=== PATIENT | female | born 1930 | race African-American/Black ===

== ENCOUNTER 2016-07-20 17:29 | Emergency (ER) | payer MEDICARE, MEDICAID ==
[~2016-07-20] VITALS: Ht 167.6 cm; Wt 80.0 kg
[~2016-07-20 17:29] MED LIST: AMLO10TA4 GT; ASPI-1035 PO; CETI-101 GT; FAMO40TA35 GT; LISI-604 GT; LISI-651 PO; LOPE2TAB26 GT; LOV40 SQ; XALAO EACHEYE
[2016-07-20] MEDS ORDERED: DIATR MEGLU/DIATRIZOATE SOLN 30ML PO ONE (18:30)
[2016-07-20 20:00] VITALS: BP 151/76
== END 2016-07-20 22:35 | disposition home or self-care (01) ==
LOC: ER 17:31
DX: K94.23 Gastrostomy malfunction (principal); I11.0 Hypertensive heart disease with heart failure; I50.9 Heart failure, unspecified; J44.9 Chronic obstructive pulmonary disease, unspecified; F03.90 Unspecified dementia, unspecified severity, without behavioral disturbance, psychotic disturbance, mood disturbance, and anxiety; E11.9 Type 2 diabetes mellitus without complications; E78.00 Pure hypercholesterolemia, unspecified; Z79.82 Long term (current) use of aspirin; Z79.899 Other long term (current) drug therapy; Z86.73 Personal history of transient ischemic attack (TIA), and cerebral infarction without residual deficits; Z87.01 Personal history of pneumonia (recurrent)
CPT/HCPCS: 43760; 74000; 99284; Q9963

== ENCOUNTER 2016-09-11 01:02 | Emergency (ER) | payer MEDICARE, MEDICAID ==
[~2016-09-11] VITALS: Ht 165.1 cm; Wt 86.0 kg
[2016-09-11 05:07] VITALS: BP 185/84
== END 2016-09-11 06:26 ==
LOC: ER 01:08
DX: Z43.1 Encounter for attention to gastrostomy (principal); J44.9 Chronic obstructive pulmonary disease, unspecified; I10 Essential (primary) hypertension; E11.9 Type 2 diabetes mellitus without complications; R47.01 Aphasia; Z86.73 Personal history of transient ischemic attack (TIA), and cerebral infarction without residual deficits; Z79.82 Long term (current) use of aspirin; Z79.899 Other long term (current) drug therapy
CPT/HCPCS: 51702; 74000; 99284

== ENCOUNTER 2017-07-19 17:02 | Emergency (ER) | payer MEDICARE, MEDICAID ==
[~2017-07-19] VITALS: Ht 165.1 cm; Wt 88.0 kg
[~2017-07-19 17:02] MED LIST changes: -ASPI-1035 PO; +ASPI-1159 PO; -FAMO40TA35 GT; +FAMO40TA70 GT
[2017-07-19] MEDS ORDERED: DIATR MEGLU/DIATRIZOATE SOLN 30ML ONE (20:54)
[2017-07-19 22:03] VITALS: BP 161/83
== END 2017-07-19 22:09 | disposition home or self-care (01) ==
LOC: ER 17:09
DX: Z43.1 Encounter for attention to gastrostomy (principal); J44.9 Chronic obstructive pulmonary disease, unspecified; I10 Essential (primary) hypertension; E11.9 Type 2 diabetes mellitus without complications; F03.90 Unspecified dementia, unspecified severity, without behavioral disturbance, psychotic disturbance, mood disturbance, and anxiety; Z79.82 Long term (current) use of aspirin; Z86.73 Personal history of transient ischemic attack (TIA), and cerebral infarction without residual deficits
CPT/HCPCS: 43760; 74018; 99284; Q9963; A4315

== ENCOUNTER 2017-11-12 11:51 | Emergency (ER) | payer MEDICARE, MEDICAID ==
[~2017-11-12] VITALS: Ht 162.6 cm; Wt 80.0 kg
[2017-11-12] MEDS ORDERED: DIATR MEGLU/DIATRIZOATE SOLN 30ML ONE (15:40)
[2017-11-12 16:50] VITALS: BP 158/83
== END 2017-11-12 16:59 | disposition home or self-care (01) ==
LOC: ER 11:51
DX: Z43.1 Encounter for attention to gastrostomy (principal); I10 Essential (primary) hypertension; F03.90 Unspecified dementia, unspecified severity, without behavioral disturbance, psychotic disturbance, mood disturbance, and anxiety; E11.9 Type 2 diabetes mellitus without complications; Z86.73 Personal history of transient ischemic attack (TIA), and cerebral infarction without residual deficits
CPT/HCPCS: 43760; 74018; 99284; Q9963

== ENCOUNTER 2018-03-16 20:51 | Emergency (ER) | payer MEDICARE, MEDICAID ==
[~2018-03-16] VITALS: Ht 162.6 cm; Wt 89.0 kg
[2018-03-17] MEDS ORDERED: CLONIDINE 0.2MG TABLET PO ONE (00:15)
[2018-03-17 01:54] VITALS: BP 107/62
== END 2018-03-17 01:57 ==
LOC: ER 20:51
DX: R04.0 Epistaxis (principal); D64.9 Anemia, unspecified; I11.0 Hypertensive heart disease with heart failure; I50.9 Heart failure, unspecified; E11.9 Type 2 diabetes mellitus without complications; F03.90 Unspecified dementia, unspecified severity, without behavioral disturbance, psychotic disturbance, mood disturbance, and anxiety; J44.9 Chronic obstructive pulmonary disease, unspecified; H57.89 Other specified disorders of eye and adnexa; Z86.73 Personal history of transient ischemic attack (TIA), and cerebral infarction without residual deficits; Z87.09 Personal history of other diseases of the respiratory system; Z93.1 Gastrostomy status; Z79.82 Long term (current) use of aspirin; Z79.899 Other long term (current) drug therapy; R60.9 Edema, unspecified
CPT/HCPCS: 99283

== ENCOUNTER 2018-03-21 19:40 | Emergency (ER) | payer MEDICARE, MEDICAID ==
[~2018-03-21] VITALS: Ht 165.1 cm; Wt 90.0 kg
[2018-03-21] MEDS ORDERED: DIATR MEGLU/DIATRIZOATE SOLN 30ML ONE (21:16)
[2018-03-21] MEDS ORDERED: CLONIDINE 0.1MG TABLET PO ONE (23:45)
[2018-03-22 01:19] VITALS: BP 150/79
== END 2018-03-22 01:20 | disposition home or self-care (01) ==
LOC: ER 19:40
DX: K94.29 Other complications of gastrostomy (principal); K21.9 Gastro-esophageal reflux disease without esophagitis; I11.9 Hypertensive heart disease without heart failure; I50.9 Heart failure, unspecified; E11.9 Type 2 diabetes mellitus without complications; J44.9 Chronic obstructive pulmonary disease, unspecified; Z86.73 Personal history of transient ischemic attack (TIA), and cerebral infarction without residual deficits
CPT/HCPCS: 43760; 74018; 99284; Q9963

== ENCOUNTER 2018-04-12 23:50 | Emergency (ER) | payer MEDICARE, MEDICAID ==
[~2018-04-12] VITALS: Ht 162.6 cm; Wt 82.0 kg
[~2018-04-12 23:50] MED LIST changes: +AMLO10TA80 MT; +CLON-457 MT; +DOCU-150 MT; +FAMO-135 MT; +INSU100C6 SQ; +LEVVL SQ; +LISI-652 MT
[2018-04-13] MEDS ORDERED: DIATR MEGLU/DIATRIZOATE SOLN 30ML ONE (04:42)
[2018-04-13 09:15] VITALS: BP 161/71
== END 2018-04-13 09:19 ==
LOC: ER 23:50
DX: K94.23 Gastrostomy malfunction (principal); I12.9 Hypertensive chronic kidney disease with stage 1 through stage 4 chronic kidney disease, or unspecified chronic kidney disease; I25.10 Atherosclerotic heart disease of native coronary artery without angina pectoris; J44.9 Chronic obstructive pulmonary disease, unspecified; F03.90 Unspecified dementia, unspecified severity, without behavioral disturbance, psychotic disturbance, mood disturbance, and anxiety; G40.909 Epilepsy, unspecified, not intractable, without status epilepticus; E11.22 Type 2 diabetes mellitus with diabetic chronic kidney disease; N18.9 Chronic kidney disease, unspecified; I69.351 Hemiplegia and hemiparesis following cerebral infarction affecting right dominant side; Z79.4 Long term (current) use of insulin; Z79.82 Long term (current) use of aspirin; Y83.3 Surgical operation with formation of external stoma as the cause of abnormal reaction of the patient, or of later complication, without mention of misadventure at the time of the procedure; Y92.89 Other specified places as the place of occurrence of the external cause
CPT/HCPCS: 74018; 99285; Q9963

== ENCOUNTER 2018-04-18 09:32 | Emergency (ER) | payer MEDICARE, MEDICAID ==
[~2018-04-18] VITALS: Ht 162.6 cm; Wt 88.5 kg
[2018-04-18] MEDS ORDERED: DIATR MEGLU/DIATRIZOATE SOLN 30ML ONE (11:17)
[2018-04-18] MEDS ORDERED: CLONIDINE 0.1MG TABLET GT ONE (12:00)
[2018-04-18] MEDS ORDERED: AMLODIPINE 10MG TABLET PO ONE (14:45)
[2018-04-18] MEDS ORDERED: HYDRALAZINE HCL 25MG TABLET GT ONE (14:45)
[2018-04-18] MEDS ORDERED: LISINOPRIL 20MG TABLET PO SCH (14:45)
[2018-04-18] MEDS ORDERED: CLONIDINE 0.2MG TABLET PO ONE (17:15)
[2018-04-18 20:30] VITALS: BP 141/66
== END 2018-04-18 20:49 ==
LOC: ER 09:40
DX: K94.29 Other complications of gastrostomy (principal); J44.9 Chronic obstructive pulmonary disease, unspecified; I11.0 Hypertensive heart disease with heart failure; I50.9 Heart failure, unspecified; F03.90 Unspecified dementia, unspecified severity, without behavioral disturbance, psychotic disturbance, mood disturbance, and anxiety; E11.9 Type 2 diabetes mellitus without complications; Z86.73 Personal history of transient ischemic attack (TIA), and cerebral infarction without residual deficits; Z79.4 Long term (current) use of insulin; Y83.3 Surgical operation with formation of external stoma as the cause of abnormal reaction of the patient, or of later complication, without mention of misadventure at the time of the procedure; Y92.128 Other place in nursing home as the place of occurrence of the external cause
CPT/HCPCS: 43760; 74018; 99285; Q9963

== ENCOUNTER 2018-05-13 18:19 | Inpatient (IN) | payer MEDICARE, MEDICAID ==
[~2018-05-13] VITALS: Ht 160 cm; Wt 93.9 kg
[2018-05-13] MEDS ORDERED: SODIUM CHLORIDE 0.9% 1000ML BAG (SEPSIS BOLUS) IV ONE (19:00)
[2018-05-13 20:50] LABS: BASOPHILS % 0.5 % (0.0-2.0); EOSINOPHILS % 1.7 % (0.0-5.0); HEMATOCRIT. 26.9 % (36.0-48.0); HEMOGLOBIN. 8.1 g/dL (12.0-16.0); LYMPHOCYTES % 8.6 % (20.0-50.0); MEAN CORPUSCULAR HEMOGLOBIN 26.7 pg (28.0-32.0); MEAN CORPUSCULAR VOLUME 88.6 fL (81.0-99.0); MEAN PLATELET VOLUME 10.3 fl (7.4-10.4); MONOCYTES % 7.8 % (2.0-8.0); NEUTROPHILS % 81.4 % (40.0-76.0); PLATELET 320 x1000/uL (130-400); RED BLOOD CELL COUNT 3.04 mill/uL (4.2-5.4)
[2018-05-13 20:55] LABS: CHLORIDE 114 mEq/L (98-107)
[2018-05-13 20:57] LABS: PROTHROMBIN TIME 10.3 sec (9.1-11.1)
[2018-05-13 22:34] LABS: CLARITY URINE TURBID (CLEAR); COLOR URINE YELLOW (YELLOW); KETONES URINE NEGATIVE (NEGATIVE); LEUKOCYTE ESTERASE URINE 3+ (NEGATIVE); NITRITE URINE NEGATIVE (NEGATIVE); OCCULT BLOOD URINE NEGATIVE (NEGATIVE); PH URINE 8.5 (4.5-8.0); PROTEIN URINE 3+ (NEGATIVE); SPECIFIC GRAVITY URINE 1.015 (1.005-1.030); UROBILINOGEN URINE 0.2 E.U./dL (0.2-1.0)
[2018-05-14] VITALS (7 sets, daily range): BP systolic 147–172; BP diastolic 59–74
[2018-05-14] MEDS ORDERED: DEXT 5%/0.9% NACL 1,000 ML IV SCH (02:15)
[2018-05-14] MEDS ORDERED: GUAI600T88 GT (02:45)
[2018-05-14] MEDS: CEFTRIAXONE 1 G PREMIX 50 ML IV SCH (05:09)
[2018-05-14 06:53] LABS: BASOPHILS % 0.5 % (0.0-2.0); EOSINOPHILS % 2.3 % (0.0-5.0); HEMATOCRIT. 24.3 % (36.0-48.0); HEMOGLOBIN. 7.5 g/dL (12.0-16.0); LYMPHOCYTES % 8.7 % (20.0-50.0); MEAN CORPUSCULAR HEMOGLOBIN 27.7 pg (28.0-32.0); MEAN CORPUSCULAR VOLUME 89.7 fL (81.0-99.0); MEAN PLATELET VOLUME 10.1 fl (7.4-10.4); MONOCYTES % 7.3 % (2.0-8.0); NEUTROPHILS % 81.2 % (40.0-76.0); PLATELET 276 x1000/uL (130-400); RED BLOOD CELL COUNT 2.71 mill/uL (4.2-5.4); RED CELL DISTRIBUTION WIDTH 15.8 % (11.6-14.6)
[2018-05-14] MEDS ORDERED: DEXTROSE 50% WATER 50ML SYRINGE IV PRN (09:00)
[2018-05-14] MEDS ORDERED: ENOXAPARIN 40MG/0.4ML SYR SUBCUT SCH (09:00)
[2018-05-14] MEDS ORDERED: LEVOFLOXACIN 500MG PREMIX 100 ML IV SCH ×2 (09:15→11:00)
[2018-05-14] MEDS: DOCUSATE SODIUM 100MG CAPSULE PO SCH (10:23)
[2018-05-14] MEDS: AMLODIPINE 10MG TABLET GT SCH (10:23)
[2018-05-14] MEDS: ASPIRIN 81MG EC TABLET PO SCH (10:23)
[2018-05-14] MEDS: ENOXAPARIN 30MG/0.3ML SYR SUBCUT SCH (10:24)
[2018-05-14] MEDS: DEXTROSE 5% WATER 1,000 ML IV SCH ×2 (10:24→23:20)
[2018-05-14] MEDS: BLOOD SUGAR DIAGNOSTIC STRIP TEST SCH ×3 (12:14→20:41)
[2018-05-14] MEDS: INSULIN LISPRO 100 UNITS/ML SUBCUT SCH ×3 (12:17→20:59)
[2018-05-14] MEDS: LACTULOSE 20G/30ML UDC PO SCH ×2 (14:34→21:00)
[2018-05-14] MEDS: VANCOMYCIN HCL 1000 MG/20 ML ORAL PO SCH (18:23)
[2018-05-14] MEDS: LATANOPROST 0.005% OPHTH DROPS 2.5ML EACHEYE SCH (20:58)
[2018-05-15] VITALS: BP 165/65
[2018-05-15] MEDS: VANCOMYCIN HCL 1000 MG/20 ML ORAL PO SCH ×4 (00:54→19:04)
[2018-05-15 04:00] VITALS: BP 152/64
[2018-05-15] MEDS: CEFTRIAXONE 1 G PREMIX 50 ML IV SCH (04:09)
[2018-05-15] MEDS: BLOOD SUGAR DIAGNOSTIC STRIP TEST SCH ×4 (05:57→21:00)
[2018-05-15] MEDS: LACTULOSE 20G/30ML UDC PO SCH ×3 (06:06→22:21)
[2018-05-15] MEDS: INSULIN LISPRO 100 UNITS/ML SUBCUT SCH ×4 (06:27→23:09)
[2018-05-15] MEDS: ASPIRIN 81MG EC TABLET PO SCH (08:19)
[2018-05-15] MEDS: ENOXAPARIN 30MG/0.3ML SYR SUBCUT SCH (08:20)
[2018-05-15] MEDS: AMLODIPINE 10MG TABLET GT SCH (08:20)
[2018-05-15] MEDS: DOCUSATE SODIUM 100MG CAPSULE PO SCH (08:27)
[2018-05-15] MEDS: LEVOFLOXACIN 250MG PREMIX 50 ML IV SCH (11:23)
[2018-05-15 12:00] VITALS: BP 155/62
[2018-05-15] MEDS ORDERED: INSULIN GLARGINE UD 100 UNITS/ML SYR SUBCUT SCH (14:30)
[2018-05-15] MEDS: CLONIDINE 0.1MG TABLET GT SCH ×2 (15:36→22:22)
[2018-05-15] MEDS: DEXTROSE 5% WATER 1,000 ML IV SCH (15:36)
[2018-05-15 15:46] LABS: TOTAL IRON BINDING CAPACITY 159 ug/dL (250-450)
[2018-05-15 16:00] VITALS: BP 157/55
[2018-05-15 20:00] VITALS: BP 149/60
[2018-05-15] MEDS: LATANOPROST 0.005% OPHTH DROPS 2.5ML EACHEYE SCH (22:24)
[2018-05-16] VITALS: BP 180/72
[2018-05-16] MEDS: VANCOMYCIN HCL 1000 MG/20 ML ORAL PO SCH ×4 (01:43→18:30)
[2018-05-16] MEDS: DEXTROSE 5% WATER 1,000 ML IV SCH ×2 (01:49→15:20)
[2018-05-16 04:00] VITALS: BP 163/68
[2018-05-16] MEDS: CEFTRIAXONE 1 G PREMIX 50 ML IV SCH (04:19)
[2018-05-16] MEDS: CLONIDINE 0.1MG TABLET GT SCH ×2 (06:48→13:07)
[2018-05-16] MEDS: LACTULOSE 20G/30ML UDC PO SCH (06:48)
[2018-05-16] MEDS: BLOOD SUGAR DIAGNOSTIC STRIP TEST SCH ×4 (06:49→21:00)
[2018-05-16 06:58] LABS: HEMATOCRIT. 21.5 % (36.0-48.0); MEAN CORPUSCULAR HEMOGLOBIN 27.5 pg (28.0-32.0); MEAN CORPUSCULAR VOLUME 90.1 fL (81.0-99.0); MEAN PLATELET VOLUME 9.7 fl (7.4-10.4); PLATELET 269 x1000/uL (130-400); RED BLOOD CELL COUNT 2.39 mill/uL (4.2-5.4); RED CELL DISTRIBUTION WIDTH 15.6 % (11.6-14.6)
[2018-05-16] MEDS: INSULIN LISPRO 100 UNITS/ML SUBCUT SCH ×4 (07:08→21:00)
[2018-05-16 07:41] LABS: PHOSPHORUS 2.9 mg/dL (2.5-4.9)
[2018-05-16 08:00] VITALS: BP 133/59
[2018-05-16 08:02] LABS: HEMOGLOBIN. 6.6 g/dL (12.0-16.0)
[2018-05-16] MEDS: AMLODIPINE 10MG TABLET GT SCH ×2 (09:00→09:03)
[2018-05-16] MEDS: DOCUSATE SODIUM 100MG CAPSULE PO SCH (09:00)
[2018-05-16] MEDS: ASPIRIN 81MG EC TABLET PO SCH ×2 (09:00→09:03)
[2018-05-16] MEDS: ENOXAPARIN 30MG/0.3ML SYR SUBCUT SCH (09:00)
[2018-05-16 11:22] LABS: PLATELET ESTIMATE NORMAL
[2018-05-16] MEDS: LEVOFLOXACIN 250MG PREMIX 50 ML IV SCH (11:52)
[2018-05-16] MEDS: INSULIN GLARGINE UD 100 UNITS/ML SYR SUBCUT SCH (11:55)
[2018-05-16 12:24] VITALS: BP 157/62
[2018-05-16] MEDS: NYSTATIN 100,000 UNITS/ML 5ML UDC SSW SCH ×2 (13:06→18:30)
[2018-05-16 16:00] VITALS: BP 132/57
[2018-05-16 20:10] VITALS: BP 94/61
[2018-05-16] MEDS: LATANOPROST 0.005% OPHTH DROPS 2.5ML EACHEYE SCH (23:58)
[2018-05-17] VITALS (7 sets, daily range): BP systolic 134–191; BP diastolic 54–84
[2018-05-17] MEDS: VANCOMYCIN HCL 1000 MG/20 ML ORAL PO SCH
[2018-05-17] MEDS: NYSTATIN 100,000 UNITS/ML 5ML UDC SSW SCH
[2018-05-17 01:16] LABS: HEMATOCRIT 27.6 % (36.0-48.0); HEMOGLOBIN 8.3 g/dL (12.0-16.0)
[2018-05-17] MEDS: BLOOD SUGAR DIAGNOSTIC STRIP TEST SCH ×4 (06:30→21:29)
[2018-05-17] MEDS: INSULIN LISPRO 100 UNITS/ML SUBCUT SCH ×4 (06:30→21:29)
[2018-05-17] MEDS ORDERED: LIDOCAINE HCL 1% 20ML VIAL (Pyxis) INJ ONE ×2 (07:50→08:35)
[2018-05-17] MEDS ORDERED: VANJ5 PO (08:20)
[2018-05-17] MEDS ORDERED: LANTUSUD SUBCUT ×2 (08:20→08:22)
[2018-05-17] MEDS ORDERED: LACT10SO7 PO (08:20)
[2018-05-17] MEDS: DOCUSATE SODIUM 100MG CAPSULE PO SCH (09:00)
[2018-05-17] MEDS ORDERED: LACTULOSE 20G/30ML UDC PO SCH (09:00)
[2018-05-17] MEDS: ASPIRIN 81MG EC TABLET PO SCH (09:00)
[2018-05-17] MEDS: INSULIN GLARGINE UD 100 UNITS/ML SYR SUBCUT SCH (10:00)
[2018-05-17 11:23] LABS: BASOPHILS % 0.4 % (0.0-2.0); HEMATOCRIT. 24.9 % (36.0-48.0); HEMOGLOBIN. 7.8 g/dL (12.0-16.0); LYMPHOCYTES % 7.3 % (20.0-50.0); MEAN CORPUSCULAR HEMOGLOBIN 27.5 pg (28.0-32.0); MEAN CORPUSCULAR VOLUME 87.7 fL (81.0-99.0); MEAN PLATELET VOLUME 10.3 fl (7.4-10.4); MONOCYTES % 4.6 % (2.0-8.0); NEUTROPHILS % 84.7 % (40.0-76.0); PLATELET 285 x1000/uL (130-400); RED BLOOD CELL COUNT 2.84 mill/uL (4.2-5.4); RED CELL DISTRIBUTION WIDTH 15.5 % (11.6-14.6)
[2018-05-17 11:37] LABS: CHLORIDE 117 mEq/L (98-107)
[2018-05-17] MEDS: ENOXAPARIN 30MG/0.3ML SYR SUBCUT SCH (12:34)
[2018-05-17] MEDS: HYDRALAZINE 20MG/ML VIAL IV PRN (13:06)
[2018-05-17] MEDS ORDERED: SODIUM CHLORIDE 0.9% 10ML VIAL ONE (16:00)
[2018-05-17] MEDS ORDERED: HYDRALAZINE 20MG/ML VIAL IV NR (16:45)
[2018-05-17] MEDS ORDERED: SODIUM CHLORIDE 0.45% 1,000 ML IV SCH (16:45)
[2018-05-17] MEDS: CLONIDINE 0.1MG TABLET GT SCH (17:00)
[2018-05-17] MEDS: AMLODIPINE 5MG TABLET GT SCH (17:00)
[2018-05-17] MEDS ORDERED: MIDAZOLAM HCL 5 MG/5 ML VIAL IV PRN (18:24)
[2018-05-17] MEDS ORDERED: MIDAZOLAM HCL 5 MG/5 ML VIAL ONE (18:25)
[2018-05-17] MEDS ORDERED: FENTANYL CITRATE/PF 50MCG/ML 2ML VIAL ONE (18:26)
[2018-05-17] MEDS: LATANOPROST 0.005% OPHTH DROPS 2.5ML EACHEYE SCH (21:28)
[2018-05-17] MEDS: PANTOPRAZOLE SODIUM 40 MG/VIAL IV SCH (21:28)
[2018-05-18] VITALS: BP 176/66
[2018-05-18 02:02] LABS: HEMATOCRIT 22.8 % (36.0-48.0); HEMOGLOBIN 7.4 g/dL (12.0-16.0)
[2018-05-18 04:00] VITALS: BP_SYST 128; BP_DIAS 105; BP_DIAS 85
[2018-05-18] MEDS: CEFTRIAXONE 1 G PREMIX 50 ML IV SCH (04:08)
[2018-05-18] MEDS: VANCOMYCIN HCL 1000 MG/20 ML ORAL PO SCH ×4 (05:54→23:26)
[2018-05-18] MEDS: NYSTATIN 100,000 UNITS/ML 5ML UDC SSW SCH ×4 (05:54→23:27)
[2018-05-18] MEDS: DEXTROSE 5% WATER 1,000 ML IV SCH ×3 (06:02→23:27)
[2018-05-18] MEDS: BLOOD SUGAR DIAGNOSTIC STRIP TEST SCH ×4 (06:18→21:00)
[2018-05-18] MEDS: INSULIN LISPRO 100 UNITS/ML SUBCUT SCH ×5 (06:18→22:02)
[2018-05-18 06:43] LABS: BASOPHILS % 0.2 % (0.0-2.0); EOSINOPHILS % 1.3 % (0.0-5.0); HEMATOCRIT. 27.5 % (36.0-48.0); HEMOGLOBIN. 8.6 g/dL (12.0-16.0); LYMPHOCYTES % 9.2 % (20.0-50.0); MEAN CORPUSCULAR HEMOGLOBIN 27.5 pg (28.0-32.0); MEAN CORPUSCULAR VOLUME 87.7 fL (81.0-99.0); MONOCYTES % 7.1 % (2.0-8.0); NEUTROPHILS % 82.2 % (40.0-76.0); PLATELET 304 x1000/uL (130-400); RED BLOOD CELL COUNT 3.14 mill/uL (4.2-5.4); RED CELL DISTRIBUTION WIDTH 15.5 % (11.6-14.6)
[2018-05-18 06:54] LABS: PHOSPHORUS 2.9 mg/dL (2.5-4.9)
[2018-05-18 08:00] VITALS: BP 172/71
[2018-05-18] MEDS: CLONIDINE 0.1MG TABLET GT SCH ×2 (11:03→18:07)
[2018-05-18] MEDS: PANTOPRAZOLE SODIUM 40 MG/VIAL IV SCH ×3 (11:03→18:06)
[2018-05-18] MEDS: ASPIRIN 81MG EC TABLET PO SCH (11:03)
[2018-05-18] MEDS: AMLODIPINE 5MG TABLET GT SCH ×2 (11:04→18:06)
[2018-05-18] MEDS: INSULIN GLARGINE UD 100 UNITS/ML SYR SUBCUT SCH (11:08)
[2018-05-18 12:00] VITALS: BP 154/60
[2018-05-18 16:00] VITALS: BP 148/57
[2018-05-18 20:00] VITALS: BP 124/52
[2018-05-18] MEDS: LATANOPROST 0.005% OPHTH DROPS 2.5ML EACHEYE SCH (22:01)
[2018-05-19] VITALS (17 sets, daily range): BP systolic 111–158; BP diastolic 45–79
[2018-05-19] MEDS: NYSTATIN 100,000 UNITS/ML 5ML UDC SSW SCH ×3 (06:00→17:18)
[2018-05-19] MEDS: BLOOD SUGAR DIAGNOSTIC STRIP TEST SCH ×4 (06:07→21:00)
[2018-05-19] MEDS: CEFTRIAXONE 1 G PREMIX 50 ML IV SCH (06:07)
[2018-05-19] MEDS: VANCOMYCIN HCL 1000 MG/20 ML ORAL PO SCH ×3 (06:07→17:18)
[2018-05-19] MEDS: INSULIN LISPRO 100 UNITS/ML SUBCUT SCH ×4 (06:11→21:00)
[2018-05-19 08:10] LABS: BASOPHILS % 0.3 % (0.0-2.0); EOSINOPHILS % 3.8 % (0.0-5.0); HEMATOCRIT. 21.3 % (36.0-48.0); LYMPHOCYTES % 10.6 % (20.0-50.0); MEAN CORPUSCULAR HEMOGLOBIN 27.3 pg (28.0-32.0); MEAN CORPUSCULAR VOLUME 87.8 fL (81.0-99.0); MEAN PLATELET VOLUME 9.5 fl (7.4-10.4); MONOCYTES % 7.6 % (2.0-8.0); NEUTROPHILS % 77.7 % (40.0-76.0); PLATELET 278 x1000/uL (130-400); RED BLOOD CELL COUNT 2.42 mill/uL (4.2-5.4); RED CELL DISTRIBUTION WIDTH 15.3 % (11.6-14.6)
[2018-05-19 08:17] LABS: HEMOGLOBIN. 6.6 g/dL (12.0-16.0)
[2018-05-19 08:41] LABS: PHOSPHORUS 3.2 mg/dL (2.5-4.9)
[2018-05-19] MEDS: PANTOPRAZOLE SODIUM 40 MG/VIAL IV SCH ×2 (09:32→17:18)
[2018-05-19] MEDS: DEXTROSE 5% WATER 1,000 ML IV SCH (09:32)
[2018-05-19] MEDS: ASPIRIN 81MG EC TABLET PO SCH (09:32)
[2018-05-19] MEDS: AMLODIPINE 5MG TABLET GT SCH ×2 (09:33→17:18)
[2018-05-19] MEDS: CLONIDINE 0.1MG TABLET GT SCH ×2 (09:33→17:18)
[2018-05-19] MEDS: INSULIN GLARGINE UD 100 UNITS/ML SYR SUBCUT SCH (09:34)
[2018-05-19] MEDS ORDERED: IRON SUCROSE COMPLEX 100 MG/5 ML ML IV SCH (13:15)
[2018-05-19] MEDS ORDERED: NON FORMULARY PATIENT HOME MED XX SCH (14:00)
[2018-05-19] MEDS: AMOXICILLIN 500 MG CAPSULE PO SCH ×2 (14:46→22:34)
[2018-05-19] MEDS: LATANOPROST 0.005% OPHTH DROPS 2.5ML EACHEYE SCH (22:04)
[2018-05-20] VITALS: BP 120/80
[2018-05-20] MEDS: VANCOMYCIN HCL 1000 MG/20 ML ORAL PO SCH ×5 (01:40→22:48)
[2018-05-20 04:00] VITALS: BP 170/65
[2018-05-20] MEDS: CEFTRIAXONE 1 G PREMIX 50 ML IV SCH (04:55)
[2018-05-20] MEDS: HYDRALAZINE 20MG/ML VIAL IV PRN (04:57)
[2018-05-20] MEDS: AMOXICILLIN 500 MG CAPSULE PO SCH ×3 (04:58→22:48)
[2018-05-20] MEDS: NYSTATIN 100,000 UNITS/ML 5ML UDC SSW SCH ×4 (05:03→13:04)
[2018-05-20] MEDS: INSULIN LISPRO 100 UNITS/ML SUBCUT SCH ×4 (06:39→21:21)
[2018-05-20] MEDS: BLOOD SUGAR DIAGNOSTIC STRIP TEST SCH ×4 (06:40→21:15)
[2018-05-20 07:30] LABS: BASOPHILS % 0.5 % (0.0-2.0); EOSINOPHILS % 4.3 % (0.0-5.0); HEMATOCRIT. 29.4 % (36.0-48.0); LYMPHOCYTES % 11.1 % (20.0-50.0); MEAN CORPUSCULAR HEMOGLOBIN 29.5 pg (28.0-32.0); MEAN CORPUSCULAR VOLUME 87.5 fL (81.0-99.0); MEAN PLATELET VOLUME 9.5 fl (7.4-10.4); MONOCYTES % 7.6 % (2.0-8.0); NEUTROPHILS % 76.5 % (40.0-76.0); PLATELET 294 x1000/uL (130-400); RED BLOOD CELL COUNT 3.36 mill/uL (4.2-5.4); RED CELL DISTRIBUTION WIDTH 14.9 % (11.6-14.6)
[2018-05-20 07:55] LABS: HEMOGLOBIN. 9.9 g/dL (12.0-16.0)
[2018-05-20 08:00] VITALS: BP 165/79
[2018-05-20 08:07] LABS: CHLORIDE 105 mEq/L (98-107)
[2018-05-20] MEDS ORDERED: POTASSIUM CHLORIDE 20MEQ TABLET SR PO NR (09:00)
[2018-05-20] MEDS: AMLODIPINE 5MG TABLET GT SCH ×2 (09:49→17:12)
[2018-05-20] MEDS: CLONIDINE 0.1MG TABLET GT SCH ×2 (09:49→17:12)
[2018-05-20] MEDS: PANTOPRAZOLE SODIUM 40 MG/VIAL IV SCH ×2 (09:50→17:13)
[2018-05-20] MEDS: ASPIRIN 81MG EC TABLET PO SCH (09:51)
[2018-05-20] MEDS: IRON SUCROSE COMPLEX 100 MG/5 ML ML IV SCH (09:51)
[2018-05-20] MEDS: INSULIN GLARGINE UD 100 UNITS/ML SYR SUBCUT SCH (09:55)
[2018-05-20] MEDS ORDERED: POTASSIUM PHOS,M-BASIC-D-BASIC 15 MMOL in DEXT 5% WATER 245 ML IV NR (10:00)
[2018-05-20 12:00] VITALS: BP 155/80
[2018-05-20 16:00] VITALS: BP 160/77
[2018-05-20 20:00] VITALS: BP 160/76
[2018-05-20] MEDS: LATANOPROST 0.005% OPHTH DROPS 2.5ML EACHEYE SCH (20:54)
[2018-05-21] VITALS: BP 165/80
[2018-05-21 04:00] VITALS: BP 188/81
[2018-05-21] MEDS: AMOXICILLIN 500 MG CAPSULE PO SCH ×3 (04:42→21:40)
[2018-05-21] MEDS: VANCOMYCIN HCL 1000 MG/20 ML ORAL PO SCH ×3 (04:42→17:53)
[2018-05-21] MEDS: CEFTRIAXONE 1 G PREMIX 50 ML IV SCH (04:42)
[2018-05-21] MEDS: HYDRALAZINE 20MG/ML VIAL IV PRN (04:54)
[2018-05-21] MEDS: BLOOD SUGAR DIAGNOSTIC STRIP TEST SCH ×4 (05:22→21:00)
[2018-05-21] MEDS: INSULIN LISPRO 100 UNITS/ML SUBCUT SCH ×4 (05:24→22:02)
[2018-05-21 07:26] LABS: CHLORIDE 104 mEq/L (98-107)
[2018-05-21 07:39] LABS: PHOSPHORUS 2.3 mg/dL (2.5-4.9)
[2018-05-21 08:11] VITALS: BP 173/80
[2018-05-21 08:11] LABS: MEAN CORPUSCULAR HEMOGLOBIN 28.6 pg (28.0-32.0); MEAN CORPUSCULAR VOLUME 86.5 fL (81.0-99.0); RED BLOOD CELL COUNT 4.08 mill/uL (4.2-5.4); RED CELL DISTRIBUTION WIDTH 15.3 % (11.6-14.6)
[2018-05-21 08:24] LABS: HEMATOCRIT. 35.3 % (36.0-48.0); HEMOGLOBIN. 11.7 g/dL (12.0-16.0)
[2018-05-21] MEDS: PANTOPRAZOLE SODIUM 40 MG/VIAL IV SCH ×2 (09:28→17:58)
[2018-05-21] MEDS: AMLODIPINE 5MG TABLET GT SCH (09:28)
[2018-05-21] MEDS: ASPIRIN 81MG EC TABLET PO SCH (09:28)
[2018-05-21] MEDS: IRON SUCROSE COMPLEX 100 MG/5 ML ML IV SCH (09:28)
[2018-05-21] MEDS: CLONIDINE 0.1MG TABLET GT SCH ×3 (09:28→21:41)
[2018-05-21] MEDS ORDERED: INSULIN GLARGINE UD 100 UNITS/ML SYR SUBCUT SCH (10:00)
[2018-05-21 12:00] VITALS: BP 165/97
[2018-05-21 13:30] LABS: NUCLEATED RED BLOOD CELLS 1 /100 WBC
[2018-05-21 13:31] LABS: PLATELET ESTIMATE NORMAL
[2018-05-21 16:00] VITALS: BP 171/83
[2018-05-21] MEDS: POTASSIUM-SODIUM PHOSPHATE POWDER PACKET PO SCH (17:58)
[2018-05-21 20:00] VITALS: BP 164/80
[2018-05-21] MEDS: LATANOPROST 0.005% OPHTH DROPS 2.5ML EACHEYE SCH (21:39)
[2018-05-21] MEDS: AMLODIPINE 5MG TABLET PO SCH (21:40)
[2018-05-22] VITALS: BP 141/66
[2018-05-22 04:00] VITALS: BP 150/75
[2018-05-22] MEDS: AMOXICILLIN 500 MG CAPSULE PO SCH ×3 (06:27→21:41)
[2018-05-22] MEDS: BLOOD SUGAR DIAGNOSTIC STRIP TEST SCH ×4 (06:27→21:42)
[2018-05-22] MEDS: CLONIDINE 0.1MG TABLET GT SCH ×3 (06:27→21:42)
[2018-05-22] MEDS: INSULIN LISPRO 100 UNITS/ML SUBCUT SCH ×4 (06:47→21:55)
[2018-05-22 08:00] VITALS: BP 170/77
[2018-05-22] MEDS: PANTOPRAZOLE SODIUM 40 MG/VIAL IV SCH ×2 (08:54→17:02)
[2018-05-22] MEDS: POTASSIUM-SODIUM PHOSPHATE POWDER PACKET PO SCH ×2 (08:54→17:02)
[2018-05-22] MEDS: ASPIRIN 81MG EC TABLET PO SCH (08:54)
[2018-05-22] MEDS: AMLODIPINE 5MG TABLET PO SCH (08:59)
[2018-05-22 09:00] LABS: HEMOGLOBIN. 10.8 g/dL (12.0-16.0); MEAN CORPUSCULAR HEMOGLOBIN 28.4 pg (28.0-32.0); MEAN CORPUSCULAR VOLUME 87.1 fL (81.0-99.0); MEAN PLATELET VOLUME 8.3 fl (7.4-10.4); PLATELET 312 x1000/uL (130-400); RED BLOOD CELL COUNT 3.79 mill/uL (4.2-5.4); RED CELL DISTRIBUTION WIDTH 15.3 % (11.6-14.6)
[2018-05-22] MEDS ORDERED: AMLODIPINE 5MG TABLET PO SCH (09:00)
[2018-05-22] MEDS ORDERED: INSULIN GLARGINE UD 100 UNITS/ML SYR SUBCUT SCH (10:00)
[2018-05-22 11:02] LABS: CHLORIDE 105 mEq/L (98-107)
[2018-05-22 12:00] VITALS: BP 148/78
[2018-05-22 13:48] LABS: NUCLEATED RED BLOOD CELLS 3 /100 WBC; PLATELET ESTIMATE NORMAL
[2018-05-22 16:00] VITALS: BP 176/83
[2018-05-22] MEDS: HYDRALAZINE 20MG/ML VIAL IV PRN (17:03)
[2018-05-22 20:00] VITALS: BP_SYST 141; BP_SYST 146; BP_DIAS 69; BP_DIAS 71
[2018-05-22] MEDS: AMLODIPINE 10MG TABLET PO SCH (21:42)
[2018-05-22] MEDS: LATANOPROST 0.005% OPHTH DROPS 2.5ML EACHEYE SCH (21:42)
[2018-05-23] VITALS: BP 146/71
[2018-05-23 04:00] VITALS: BP 168/70
[2018-05-23] MEDS: INSULIN LISPRO 100 UNITS/ML SUBCUT SCH ×4 (06:14→21:16)
[2018-05-23] MEDS: BLOOD SUGAR DIAGNOSTIC STRIP TEST SCH ×4 (06:15→21:16)
[2018-05-23] MEDS: AMOXICILLIN 500 MG CAPSULE PO SCH ×3 (06:15→21:15)
[2018-05-23] MEDS: CLONIDINE 0.1MG TABLET GT SCH (06:16)
[2018-05-23 07:53] LABS: CHLORIDE 104 mEq/L (98-107)
[2018-05-23 08:00] VITALS: BP 167/78
[2018-05-23 08:10] LABS: PHOSPHORUS 3.6 mg/dL (2.5-4.9)
[2018-05-23] MEDS: PANTOPRAZOLE SODIUM 40 MG/VIAL IV SCH ×2 (08:13→17:45)
[2018-05-23] MEDS: ASPIRIN 81MG EC TABLET PO SCH (08:13)
[2018-05-23] MEDS: POTASSIUM-SODIUM PHOSPHATE POWDER PACKET PO SCH (08:18)
[2018-05-23] MEDS: AMLODIPINE 10MG TABLET PO SCH ×2 (08:19→21:15)
[2018-05-23] MEDS: INSULIN GLARGINE UD 100 UNITS/ML SYR SUBCUT SCH (10:58)
[2018-05-23 12:00] VITALS: BP 161/78
[2018-05-23] MEDS: CLONIDINE 0.2MG TABLET GT SCH ×2 (13:10→21:15)
[2018-05-23 16:00] VITALS: BP 165/81
[2018-05-23 20:00] VITALS: BP 165/79
[2018-05-23] MEDS: LATANOPROST 0.005% OPHTH DROPS 2.5ML EACHEYE SCH (21:15)
[2018-05-24] VITALS: BP 143/68
[2018-05-24 04:00] VITALS: BP 150/71
[2018-05-24] MEDS: BLOOD SUGAR DIAGNOSTIC STRIP TEST SCH ×3 (06:28→16:45)
[2018-05-24] MEDS: AMOXICILLIN 500 MG CAPSULE PO SCH ×2 (06:39→14:17)
[2018-05-24] MEDS: CLONIDINE 0.2MG TABLET GT SCH ×2 (06:40→14:18)
[2018-05-24] MEDS: INSULIN LISPRO 100 UNITS/ML SUBCUT SCH ×3 (06:41→17:15)
[2018-05-24 07:45] LABS: BASOPHILS % 0.4 % (0.0-2.0); EOSINOPHILS % 4.2 % (0.0-5.0); HEMATOCRIT. 30.5 % (36.0-48.0); LYMPHOCYTES % 12.2 % (20.0-50.0); MEAN CORPUSCULAR HEMOGLOBIN 28.4 pg (28.0-32.0); MEAN CORPUSCULAR VOLUME 86.7 fL (81.0-99.0); MEAN PLATELET VOLUME 7.7 fl (7.4-10.4); MONOCYTES % 6.9 % (2.0-8.0); NEUTROPHILS % 76.3 % (40.0-76.0); PLATELET 324 x1000/uL (130-400); RED BLOOD CELL COUNT 3.52 mill/uL (4.2-5.4); RED CELL DISTRIBUTION WIDTH 15.7 % (11.6-14.6)
[2018-05-24 08:00] VITALS: BP 119/72
[2018-05-24 08:12] LABS: CHLORIDE 104 mEq/L (98-107)
[2018-05-24 08:16] LABS: PHOSPHORUS 3.9 mg/dL (2.5-4.9)
[2018-05-24] MEDS: ASPIRIN 81MG EC TABLET PO SCH (09:02)
[2018-05-24] MEDS: AMLODIPINE 10MG TABLET PO SCH (09:02)
[2018-05-24] MEDS: PANTOPRAZOLE SODIUM 40 MG/VIAL IV SCH ×2 (09:02→17:00)
[2018-05-24] MEDS ORDERED: LINAGLIPTIN 5MG TABLET PO SCH (10:00)
[2018-05-24] MEDS: INSULIN GLARGINE UD 100 UNITS/ML SYR SUBCUT SCH (10:38)
[2018-05-24 12:00] VITALS: BP 126/75
[2018-05-24 16:00] VITALS: BP 140/64
[2018-05-24 16:47] VITALS: BP 140/64
== END 2018-05-24 18:24 | DRG 371 ==
LOC: ER 18:19 → 5WST 22:06 → EDBEDREQ 22:10 → EDBEDREQSVC 22:10 → ENRESERV 22:40
PROVIDERS: ADMIT Family Medicine; ATTEND Family Medicine
PROC: 0D758ZZ Dilation of Esophagus, Via Natural or Artificial Opening Endoscopic (ICD-10-PCS; principal; 2018-05-17)
PROC: 0D20XUZ Change Feeding Device in Upper Intestinal Tract, External Approach (ICD-10-PCS; 2018-05-17)
DX: A04.72 Enterocolitis due to Clostridium difficile, not specified as recurrent (principal); G93.41 Metabolic encephalopathy; N17.0 Acute kidney failure with tubular necrosis; K94.23 Gastrostomy malfunction; E87.1 Hypo-osmolality and hyponatremia; N39.0 Urinary tract infection, site not specified; E46 Unspecified protein-calorie malnutrition; E72.20 Disorder of urea cycle metabolism, unspecified; E87.0 Hyperosmolality and hypernatremia; E87.3 Alkalosis; I50.32 Chronic diastolic (congestive) heart failure; I67.82 Cerebral ischemia; Z74.01 Bed confinement status; E78.5 Hyperlipidemia, unspecified; E86.0 Dehydration; J44.9 Chronic obstructive pulmonary disease, unspecified; K22.2 Esophageal obstruction; R13.12 Dysphagia, oropharyngeal phase; K29.70 Gastritis, unspecified, without bleeding; R47.1 Dysarthria and anarthria; K44.9 Diaphragmatic hernia without obstruction or gangrene; D50.9 Iron deficiency anemia, unspecified; D63.8 Anemia in other chronic diseases classified elsewhere; E11.65 Type 2 diabetes mellitus with hyperglycemia; E66.01 Morbid (severe) obesity due to excess calories; E11.649 Type 2 diabetes mellitus with hypoglycemia without coma; E83.39 Other disorders of phosphorus metabolism; Y83.3 Surgical operation with formation of external stoma as the cause of abnormal reaction of the patient, or of later complication, without mention of misadventure at the time of the procedure; Y92.238 Other place in hospital as the place of occurrence of the external cause; F03.90 Unspecified dementia, unspecified severity, without behavioral disturbance, psychotic disturbance, mood disturbance, and anxiety; H40.9 Unspecified glaucoma; I11.0 Hypertensive heart disease with heart failure; Z68.36 Body mass index [BMI] 36.0-36.9, adult; I69.320 Aphasia following cerebral infarction; I69.391 Dysphagia following cerebral infarction; Z87.01 Personal history of pneumonia (recurrent); Z79.82 Long term (current) use of aspirin; Z79.899 Other long term (current) drug therapy
CPT/HCPCS: 36415; 36569; 71045; 74018; 76937; 77001; 80048; 82140; 82962; 83540; 83550; 83605; 83735; 84100; 84484; 85014; 85018; 86850; 86900; 86920; 87015; 87045; 87077; 87186; 87427; 87449; 87493; 93005; 93306; 96360; 96361; 99291; A6261; C1725; C1893; C9113; J0360; J0696; J1650; J1815; J1956; J2250; J3010; J3370; J3490; J7040; J7042; J7050; J7060; J7070; P9016; A4315